=== PATIENT | female | born 1945 | race Caucasian/White ===

== ENCOUNTER 2022-12-11 17:08 | Emergency (ER) | payer OTHER, SELFPAY ==
--- NOTE | 2022-12-11 17:13 | DI.CT.S_ITS ---
PROCEDURE: CT HEAD/BRAIN WO CON INDICATIONS: fall TECHNIQUE: Noncontrast 4.5 mm thick angled axial sections acquired from the foramen magnum to the vertex, with coronal and sagittal reformats. For radiation dose reduction, the following was used: automated exposure control, adjustment of mA and/or kV according to patient size. COMPARISON: None. FINDINGS: Image quality: Excellent. CSF spaces: Basal cisterns are patent. No extra-axial fluid collections. The ventricles are symmetric in size and shape. Brain: No intracranial bleeds . Left posterior parafalcine calcified dural-based mass roughly 11 mm. There is cerebral volume loss for age, with resultant ventricular and sulcal prominence. There are periventricular and deep white matter chronic small vessel ischemic changes. There is intracranial internal carotid artery atherosclerosis. Skull and face: Calvarium and visualized facial bones appear intact, without suspicious lesions. Sinuses: Visualized sinuses and mastoids are clear. IMPRESSION: 1. No acute intracranial abnormality. 2. Left posterior parafalcine meningioma. Dictated by: Jacqueline Gipson M.D. on 12/11/2022 at 16:41 Approved by: Jacqueline Gipson M.D. on 12/11/2022 at 16:43
--- NOTE | 2022-12-11 17:13 | DI.CT.S_ITS ---
PROCEDURE: CT CERVICAL SPINE WO CON INDICATIONS: fall TECHNIQUE: Noncontrast 3 mm thick sections acquired from the skull base to the T4 level. Sagittal and coronal reformats were then constructed. For radiation dose reduction, the following was used: automated exposure control, adjustment of mA and/or kV according to patient size. COMPARISON: None. FINDINGS: Image quality: Excellent. Bones: No fractures or dislocations. Visualized superior ribs are intact. Soft tissues: Prevertebral soft tissues are normal in thickness. No paravertebral hematomas. No apical pneumothoraces. IMPRESSION: No acute fracture. No osseous lesion. If symptoms and/or clinical suspicion for pathology persist, further assessment with MRI or bone scan may be helpful for further assessment. Dictated by: Jacqueline Gipson M.D. on 12/11/2022 at 16:43 Approved by: Jacqueline Gipson M.D. on 12/11/2022 at 16:44
[2022-12-11 17:30] VITALS: BP 161/77; PULSE 68; RESP 19; TEMP 36.5; O2SAT 98
[2022-12-11 19:18] VITALS: BP 179/84; PULSE 70; O2SAT 98
--- NOTE | 2022-12-11 20:15 | ED_ITS ---
HPI - Fall General Chief Complaint: Fall Stated Complaint: Fall, Hit head, No thinners Time Seen by Provider: 12/11/22 17:13 Source: patient Mode of arrival: Family Vehicle History of Present Illness HPI Narrative: Patient is a 77-year-old female presenting today after mechanical fall. She was walking run a trail tripped over on a root. She fell and hit her face no loss of consciousness no nausea vomiting numbness tingling or weakness. She is not on any antiplatelet or anticoagulation medication. No neck pain or other injury. Laceration above right eye. She went home to clean up a little bit but still has abrasions on face. Related Data Allergies Allergy/AdvReac Type Severity Reaction Status Date / Time No Known Drug Allergies Allergy Verified 12/11/22 17:50 Review of Systems Review of Systems ROS Unobtainable: All systems reviewed & are unremarkable except as noted in HPI and below Patient History Social History Smoking Status: Never smoker Smoking Status: Never smoker alcohol intake frequency: 0-2 drinks per day Substance Use Type: does not use Exam Initial Vital Signs Initial Vital Signs: Vital Signs Temperature 97.7 F 12/11/22 17:30 Pulse Rate 68 12/11/22 17:30 Respiratory Rate 19 12/11/22 17:30 Blood Pressure 161/77 H 12/11/22 17:30 Pulse Oximetry 98 12/11/22 17:30 Oxygen Delivery Method Room Air 12/11/22 17:30 GENERAL: Alert pleasant 68-year-old female HEENT: Head atraumatic,EOMI, pupils reactive, face is symmetric multiple abrasions 2 cm laceration above right eyebrow CARDIOVASCULAR: Regular rate and rhythm without murmurs, rubs or gallops. RESPIRATORY: Breath sounds equal bilaterally, no wheezes rales or rhonchi. ABDOMEN: Soft, nontender. Normoactive bowel sounds all 4 quadrants. No guarding or rebound. EXTREMITIES: Normal range of motion, no clubbing or edema. Neurovascularly intact NEUROLOGICAL: Alert and oriented x4.Normal gait and speech. Director Social strength equal bilaterally SKIN: Warm, dry, no laceration, no petechiae, no rashes or lesions. Procedures Laceration Repair Laceration 1: Site: face Side (If applicable): right Size (cm): 2 Description: linear Depth: simple, single layer Local Anesthetic: lidocaine 1% and with epi Amount of anesthesia used (mL): 3 Pre-repair: wound explored, irrigated extensively, deep structures intact and extensive debridement Skin layer closed with: nylon Skin layer suture size: 4-0 Number of sutures: 2 Laceration 2: Site: face Side (If applicable): right Size (cm): 1 Description: stellate Depth: simple, single layer Local Anesthetic: lidocaine 1% and with epi Amount of anesthesia used (mL): 3 Pre-repair: wound explored, irrigated extensively, deep structures intact and extensive debridement (a rock removed) Skin layer closed with: nylon Skin layer suture size: 4-0 Number of sutures: 1 Technique: simple, interrupted Course Orders Ordered: ED Orders 12/11/22 17:13 CT cervical spine wo con Stat CT head/brain wo con Stat Vital Signs Vital signs: Vital Signs - 8 hr 12/11/22 20:17 Pulse Rate 70 Respiratory Rate 18 Blood Pressure 156/88 H Pulse Oximetry 98 Oxygen Delivery Method Room Air MDM - Fall Imaging Data CT scan - head: Radiologist's Impression: PROCEDURE:? CT HEAD/BRAIN WO CON ? INDICATIONS:? fall ? TECHNIQUE:? Noncontrast 4.5 mm thick angled axial sections acquired from the foramen magnum to the vertex, with coronal and sagittal reformats.? For radiation dose reduction, the following was used:? automated exposure control, adjustment of mA and/or kV according to patient size.? ? COMPARISON:? None. ? FINDINGS:? Image quality:? Excellent.? ? CSF spaces:? Basal cisterns are patent.? No extra-axial fluid collections.? The ventricles are symmetric in size and shape.? ? Brain:? No intracranial bleeds .? Left posterior parafalcine calcified dural- based mass roughly 11 mm. There is cerebral volume loss for age, with resultant ventricular and sulcal prominence.? There are periventricular and deep white matter chronic small vessel ischemic changes.? There is intracranial internal carotid artery atherosclerosis.? ? Skull and face:? Calvarium and visualized facial bones appear intact, without suspicious lesions.? ? Sinuses:? Visualized sinuses and mastoids are clear.? ? IMPRESSION:? 1. No acute intracranial abnormality. 2. Left posterior parafalcine meningioma.? ? ? Dictated by: Jacqueline Gipson M.D. on 12/11/2022 at 16:41 ? ? CT - cervical spine: Radiologist's Impression: PROCEDURE:? CT CERVICAL SPINE WO CON ? INDICATIONS:? fall ? TECHNIQUE:? Noncontrast 3 mm thick sections acquired from the skull base to the T4 level.? Sagittal and coronal reformats were then constructed.? For radiation dose reduction, the following was used:? automated exposure control, adjustment of mA and/or kV according to patient size.? ? COMPARISON:? None. ? FINDINGS:? Image quality:? Excellent.? ? Bones:? No fractures or dislocations.? Visualized superior ribs are intact.? ? Soft tissues:? Prevertebral soft tissues are normal in thickness.? No paravertebral hematomas.? No apical pneumothoraces.? ? ? IMPRESSION:? No acute fracture. No osseous lesion. If symptoms and/or clinical suspicion for pathology persist, further assessment with MRI or bone scan may be helpful for further assessment. ? ? Dictated by: Jacqueline Gipson M.D. on 12/11/2022 at 16:43? [facility] Narrative Medical decision making narrative: Patient is 77-year-old female who presents today after mechanical fall after tripping on a root. She fell face planted. She has a laceration to her right eyebrow. She does have quite a bit of dirt on her face was washed off and irrigated. 2 areas were easily repaired with sutures. Discussed with her but need for possible antibiotics just based on the dirt however she declines at this time and would like soap and water and topical antibiotic which I think is reasonable. We discussed warning signs and when to return. She is not on any antiplatelet or anticoagulation medication. She is a negative head CT and C- spine. She is no other injury from the fall. No need for any further workup. Discharge Plan Departure Patient Disposition: Home Clinical Impression: Fall, Laceration Instructions: DI for Laceration Repair Activity Restrictions/Additional Instructions: *You have been diagnosed with laceration *What to do: Heat face and wounds clean and dry with soap and water. Apply antibiotic ointment 1-2 times daily. Have sutures removed in about 5-7 days by walk-in clinic primary care or ER. *Continue to take medications as directed Tylenol Motrin as needed *Follow up with your primary care provider in 2-3 days or call [phone] *Return to ER if you should have increasing redness swelling pain or any new, worsening or concerning symptoms Stand Alone Forms: Patient Portal/API
[2022-12-11 20:17] VITALS: BP 156/88; PULSE 70; RESP 18; O2SAT 98
== END 2022-12-11 21:08 | disposition home or self-care (01) ==
PROVIDERS: Emergency Provider Emergency Medicine
DX: S01.81XA Laceration without foreign body of other part of head, initial encounter (principal); W01.198A Fall on same level from slipping, tripping and stumbling with subsequent striking against other object, initial encounter
CPT/HCPCS: 12013; 70450; 72125; 99283; 99284